=== PATIENT | male | born 1945 | race Caucasian/White ===

== ENCOUNTER 2017-07-03 07:38 | Day surgery (SDC) | payer OTHER, MEDICARE ==
[~2017-07-03] VITALS: Ht 185.4 cm; Wt 106.6 kg
[~2017-07-03 07:38] MED LIST: ALDACTONE100 MG PO; Aspirin E.C. PO; CARDIZEM120 MG PO; CATAPRES-TTS 31 EACH TD; CELEBREX200 MG PO; COLCHICINE0.6 M1 PO; Cardizem CD,Cartia X PO; Catapres PO; Catapres-TTS 3 TD; DuoNeb IH; Duragesic TD; FAMCICLOVIR500 MG PO; FENTANYL PATCH TD; FLUOCINOLON118.28 ML TP; FUROSEMIDE40 MG PO; Feosol PO; Habitrol,Nicoderm CQ TD; Hydrodiuril,Oretic,E PO; IRON325 MG PO; L-LYSINE500 M1 PO; LABETALOL HCL100 MG PO; LABETOLOL PO; LOVAZA1 GM PO; Lasix PO; Levaquin PO; Lovaza PO; Lovenox SC; Lysine,L-Lysine PO; MECLIZINE HCL12.5 M1 PO; MELATONIN10 M1 PO; MELATONIN10 M2 PO; MIRAPEX PO; MIRAPEX1 MG PO; MURO-128 5300 DROP/1 BOTH EYES; Melatonin PO; Milk Thistle PO; Mirapex PO; Muro-128 5% Ophth So BOTH EYES; NICOTINE PATCH1 EAC2 TD; NIFEDICAL XL60 MG PO; NIFEDIPINE ER30 MG PO; NORVASC10 MG PO; Normodyne,Trandate PO; Norvasc PO; OMEGA 3-6-9 11200 MG PO; OMEGA DHA92 MG PO; PAXIL20 MG PO; PAXIL30 MG PO; PRILOSEC20 MG PO; PROTONIX40 MG PO; Paxil PO; Protonix PO; RENVELA800 MG PO; SANTYL30 GM TP; SENOKOT,SENN1 TABLET PO; SODIUM BICARBO325 MG PO; SPIRONOLACTONE50 MG PO; SYNTHROID100 MCG PO; THERAGRAN1 TABLET PO; TIZANIDINE HCL4 M1 PO; TRAMADOL HCL50 MG PO; Theragran PO; ULORIC80 MG PO; ULTRAM50 MG PO; VIEKIRA PAK1 EACH PO; VITAMIN D31000 UNI2 PO; ZYLOPRIM100 MG PO; celeBREX PO; oxyCODONE PO
[2017-07-03] MEDS ORDERED: PRAMIPEXOLE D0.25 MG PO (07:57)
[2017-07-03] MEDS ORDERED: MIDODRINE HCL5 MG PO (07:58)
[2017-07-03] MEDS ORDERED: PANTOPRAZOLE SO40 MG PO (07:58)
[2017-07-03] MEDS ORDERED: RENVELA800 MG PO (07:59)
[2017-07-03] MEDS ORDERED: PAXIL20 MG PO (07:59)
[2017-07-03] MEDS ORDERED: FOLIC ACID1 MG PO (07:59)
[2017-07-03] MEDS ORDERED: TYLENOL EXTRA500 MG PO (08:01)
[2017-07-03] MEDS ORDERED: LATANOPROST2.5 ML BOTH EYES (08:01)
== END 2017-07-03 09:05 | disposition home or self-care (01) ==
LOC: CATH 07:38
DX: T82.590A Other mechanical complication of surgically created arteriovenous fistula, initial encounter (principal); N18.6 End stage renal disease; Z99.2 Dependence on renal dialysis; I83.90 Asymptomatic varicose veins of unspecified lower extremity; Z79.01 Long term (current) use of anticoagulants
CPT/HCPCS: 87641; C1769; C1894; J1644; J2250; J3010

== ENCOUNTER 2017-12-17 08:00 | Day surgery (SDC) | payer OTHER, MEDICARE ==
[~2017-12-17] VITALS: Ht 185.4 cm; Wt 111.2 kg
[~2017-12-17 08:00] MED LIST changes: +BREO ELLIPTA I1 EACH IH; +DUONEB 2.5-0.5 M3 ML AEROSOL; +FOLIC ACID1 MG PO; +FOSRENOL1000 MG PO; +LASIX40 MG PO; +LATANOPROST2.5 ML BOTH EYES; +MIDODRINE HCL5 MG PO; +PANTOPRAZOLE SO40 MG PO; +PRAMIPEXOLE D0.25 MG PO; +PULMICORT0.5 MG/21 IH; +SYNTHROID125 MCG PO; +TYLENOL EXTRA500 MG PO
[2017-12-17 08:47] VITALS: BP 181/80
[2017-12-17 08:47] LABS: HEMATOCRIT 36.6 % (38.0-50.0); HEMOGLOBIN 11.3 G/DL (12.5-16.6); MCH 33.2 PG (29.0-34.0); MCHC 30.9 G/DL (30.0-36.0); MCV 107.6 FL (86-99); PLATELET COUNT 132 K/uL (156-360); RBC DIS.WIDTH-CV 14.3 % (11.8-14.6); RBC DIS.WIDTH-SD 56.7 % (39-53); WHITE BLOOD COUNT 4.8 K/uL (4.1-10.2)
[2017-12-17 09:01] LABS: CHLORIDE 101 MEQ/L (99-109); GFR ESTIMATE (CALCULATED) 10 mL/min/ (58.99-99999); GLUCOSE 95 mg/dL (70-99); POTASSIUM 4.7 MEQ/L (3.7-5.4); SODIUM 141 MEQ/L (136-147); UREA NITROGEN (BUN) 60 mg/dL (9-23)
[2017-12-17 13:00] VITALS: BP 172/81
[2017-12-17 13:50] VITALS: BP 169/75
[2017-12-18] MEDS ORDERED: ISTALOL5 ML LEFT EYE (17:16)
[2017-12-18] MEDS ORDERED: CEPHALEXIN500 MG PO (17:16)
== END 2017-12-17 14:05 | disposition home or self-care (01) ==
LOC: SDC 08:00
PROVIDERS: Surgery
DX: T82.41XA Breakdown (mechanical) of vascular dialysis catheter, initial encounter (principal); Y83.2 Surgical operation with anastomosis, bypass or graft as the cause of abnormal reaction of the patient, or of later complication, without mention of misadventure at the time of the procedure; I12.0 Hypertensive chronic kidney disease with stage 5 chronic kidney disease or end stage renal disease; N18.6 End stage renal disease; Z99.2 Dependence on renal dialysis; Z87.891 Personal history of nicotine dependence; E03.9 Hypothyroidism, unspecified; I83.90 Asymptomatic varicose veins of unspecified lower extremity; Z86.12 Personal history of poliomyelitis
CPT/HCPCS: 80048; 85027; 87641; 93005; C1874; J0690; J1644; J2250; J2405; J2720; J3010

== ENCOUNTER 2017-12-18 13:56 | Inpatient (IN) | payer OTHER, MEDICARE ==
[~2017-12-18] VITALS: Ht 185.4 cm; Wt 123.9 kg
[2017-12-18 14:40] LABS: BASOPHIL (%) 0.8 % (0-1); BASOPHIL COUNT 0.1 K/uL (0-0.1); EOSINOPHIL COUNT 0.2 K/uL (0-0.3); HEMATOCRIT 34.4 % (38.0-50.0); HEMOGLOBIN 11.2 G/DL (12.5-16.6); IMMATURE GRANULOCYTE (%) 0.3 % (0.0-0.7); LYMPHOCYTE (%) 21.9 % (15-42); LYMPHOCYTE COUNT 1.3 K/uL (1.0-2.8); MCH 35.1 PG (29.0-34.0); MCHC 32.6 G/DL (30.0-36.0); MCV 107.8 FL (86-99); MONOCYTE COUNT 0.7 K/uL (0-0.8); NEUTROPHIL COUNT 3.8 K/uL (1.8-6.4); PLATELET COUNT 129 K/uL (156-360); RBC DIS.WIDTH-CV 14.4 % (11.8-14.6); RBC DIS.WIDTH-SD 57.1 % (39-53); RED BLOOD COUNT 3.19 M/uL (4.00-5.50); WHITE BLOOD COUNT 6.1 K/uL (4.1-10.2)
[2017-12-18 14:49] LABS: INTER. NORMALIZED RATIO 1.1
[2017-12-18 14:50] LABS: ALBUMIN 3.7 g/dL (3.2-4.8); CHLORIDE 103 mEq/L (99-109); SODIUM 141 mEq/L (136-147)
[2017-12-18 14:52] LABS: GLUCOSE 86 mg/dL (70-99); PTT 34.5 SEC (25-37); TOTAL PROTEIN 7.7 g/dL (6.4-8.3)
[2017-12-18 14:54] LABS: TOTAL BILIRUBIN 0.5 mg/dL (0.0-1.0)
[2017-12-18 14:56] LABS: ALKALINE PHOSPHATASE 78 IU/L (3-129)
[2017-12-18 14:57] LABS: UREA NITROGEN (BUN) 81 mg/dL (9-23)
[2017-12-18 14:58] LABS: AST (GOT) 28 IU/L (2-34)
[2017-12-18 14:59] LABS: ALT (GPT) 15 IU/L (3-49)
[2017-12-18 15:02] LABS: CREATININE 7.4 mg/dL (0.6-1.3); GFR ESTIMATE (CALCULATED) 8 mL/min/ (58.99-99999); POTASSIUM 5.7 mEq/L (3.7-5.4)
[2017-12-18 15:19] LABS: TROP-I INTERPRETATION NEGATIVE; TROPONIN-I 0.02 ng/mL (0.0-0.30)
[2017-12-18] MEDS ORDERED: ISTALOL5 ML LEFT EYE (17:16)
[2017-12-18] MEDS ORDERED: CEPHALEXIN500 MG PO (17:16)
[2017-12-18 17:52] LABS: CHLORIDE 104 mEq/L (99-109); POTASSIUM 5.6 mEq/L (3.7-5.4); SODIUM 143 mEq/L (136-147)
[2017-12-18 17:57] LABS: CREATININE 7.5 mg/dL (0.6-1.3); GFR ESTIMATE (CALCULATED) 8 mL/min/ (58.99-99999)
[2017-12-18 17:58] LABS: UREA NITROGEN (BUN) 83 mg/dL (9-23)
[2017-12-18 18:22] LABS: GLUCOSE 110 mg/dL (70-99)
[2017-12-18 21:11] VITALS: BP 153/72
[2017-12-19 04:34] VITALS: BP 144/70
[2017-12-19 06:15] LABS: CHLORIDE 101 MEQ/L (99-109); CREATININE 7.8 MG/DL (0.6-1.3); GFR ESTIMATE (CALCULATED) 7 mL/min/ (58.99-99999); GLUCOSE 88 mg/dL (70-99); POTASSIUM 5.7 MEQ/L (3.7-5.4); SODIUM 140 MEQ/L (136-147); UREA NITROGEN (BUN) 84 mg/dL (9-23)
[2017-12-19 07:23] VITALS: BP 131/61
[2017-12-19 12:17] LABS: BASOPHIL (%) 0.5 % (0-1); EOSINOPHIL (%) 2.2 % (0-5); EOSINOPHIL COUNT 0.1 K/uL (0-0.3); HEMATOCRIT 31.1 % (38.0-50.0); IMMATURE GRANULOCYTE (%) 0.5 % (0.0-0.7); LYMPHOCYTE (%) 18.9 % (15-42); LYMPHOCYTE COUNT 1.1 K/uL (1.0-2.8); MCH 34.8 PG (29.0-34.0); MCHC 32.2 G/DL (30.0-36.0); MCV 108.4 FL (86-99); MONOCYTE (%) 10.7 % (3-12); MONOCYTE COUNT 0.6 K/uL (0-0.8); NEUTROPHIL (%) 67.2 % (45-76); PLATELET COUNT 122 K/uL (156-360); RBC DIS.WIDTH-CV 14.4 % (11.8-14.6); RBC DIS.WIDTH-SD 57.9 % (39-53); RED BLOOD COUNT 2.87 M/uL (4.00-5.50)
[2017-12-19 19:00] VITALS: BP 143/65
[2017-12-20 00:41] VITALS: BP 153/70
[2017-12-20 03:35] VITALS: BP 132/63
[2017-12-20 06:11] LABS: HEMATOCRIT 31.9 % (38.0-50.0); HEMOGLOBIN 9.9 G/DL (12.5-16.6); MCH 33.3 PG (29.0-34.0); MCV 107.4 FL (86-99); PLATELET COUNT 114 K/uL (156-360); RBC DIS.WIDTH-SD 55.4 % (39-53); RED BLOOD COUNT 2.97 M/uL (4.00-5.50); WHITE BLOOD COUNT 5.2 K/uL (4.1-10.2)
[2017-12-20 06:33] LABS: CHLORIDE 97 MEQ/L (99-109); GLUCOSE 98 mg/dL (70-99); SODIUM 139 MEQ/L (136-147); UREA NITROGEN (BUN) 45 mg/dL (9-23)
[2017-12-20 06:38] LABS: CREATININE 5.5 MG/DL (0.6-1.3); GFR ESTIMATE (CALCULATED) 11 mL/min/ (58.99-99999); POTASSIUM 4.4 MEQ/L (3.7-5.4)
[2017-12-20 09:01] VITALS: BP 146/67
[2017-12-20 11:45] VITALS: BP 128/61
[2017-12-20 16:34] VITALS: BP 148/72
[2017-12-20 19:15] VITALS: BP 152/67
[2017-12-21 00:29] VITALS: BP 146/69
[2017-12-21 05:09] VITALS: BP 147/67
[2017-12-21 11:56] VITALS: BP 127/59
[2017-12-21 15:49] VITALS: BP 144/65
[2017-12-21 19:15] VITALS: BP 127/59
[2017-12-22 00:29] VITALS: BP 126/62
[2017-12-22 05:08] VITALS: BP 131/61
[2017-12-22 07:27] LABS: VANCOMYCIN, TROUGH 16.9 MCG/ML (10-20)
[2017-12-22 07:47] LABS: BASOPHIL (%) 0.7 % (0-1); EOSINOPHIL (%) 4.2 % (0-5); EOSINOPHIL COUNT 0.3 K/uL (0-0.3); HEMATOCRIT 32.1 % (38.0-50.0); HEMOGLOBIN 10.1 G/DL (12.5-16.6); IMMATURE GRANULOCYTE (%) 0.2 % (0.0-0.7); LYMPHOCYTE (%) 13.6 % (15-42); LYMPHOCYTE COUNT 0.8 K/uL (1.0-2.8); MCH 34.1 PG (29.0-34.0); MCHC 31.5 G/DL (30.0-36.0); MCV 108.4 FL (86-99); MONOCYTE (%) 12.2 % (3-12); MONOCYTE COUNT 0.7 K/uL (0-0.8); NEUTROPHIL (%) 69.1 % (45-76); NEUTROPHIL COUNT 4.1 K/uL (1.8-6.4); PLATELET COUNT 111 K/uL (156-360); RBC DIS.WIDTH-CV 13.8 % (11.8-14.6); RBC DIS.WIDTH-SD 55.1 % (39-53); RED BLOOD COUNT 2.96 M/uL (4.00-5.50); WHITE BLOOD COUNT 5.9 K/uL (4.1-10.2)
[2017-12-22 10:56] LABS: ALBUMIN 3.3 G/DL (3.2-4.8); CHLORIDE 98 MEQ/L (99-109); GFR ESTIMATE (CALCULATED) 7 mL/min/ (58.99-99999); GLUCOSE 126 mg/dL (70-99); PHOSPHORUS 7.7 mg/dL (2.5-4.9); POTASSIUM 4.7 MEQ/L (3.7-5.4); SODIUM 142 MEQ/L (136-147); UREA NITROGEN (BUN) 67 mg/dL (9-23)
[2017-12-22 10:58] LABS: CREATININE 7.8 MG/DL (0.6-1.3)
[2017-12-22] MEDS ORDERED: ZYVOX600 MG PO (14:31)
[2017-12-22 15:34] VITALS: BP 123/58
[2017-12-22 19:45] VITALS: BP 164/72
[2017-12-23] VITALS: BP 140/62
[2017-12-23 04:00] VITALS: BP 152/66
[2017-12-23 05:56] LABS: BASOPHIL (%) 0.7 % (0-1); EOSINOPHIL (%) 3.8 % (0-5); EOSINOPHIL COUNT 0.2 K/uL (0-0.3); HEMATOCRIT 32.3 % (38.0-50.0); HEMOGLOBIN 10.1 G/DL (12.5-16.6); IMMATURE GRANULOCYTE (%) 0.4 % (0.0-0.7); LYMPHOCYTE (%) 21.2 % (15-42); LYMPHOCYTE COUNT 1.2 K/uL (1.0-2.8); MCH 33.7 PG (29.0-34.0); MCHC 31.3 G/DL (30.0-36.0); MCV 107.7 FL (86-99); MONOCYTE (%) 13.6 % (3-12); MONOCYTE COUNT 0.7 K/uL (0-0.8); NEUTROPHIL (%) 60.3 % (45-76); NEUTROPHIL COUNT 3.3 K/uL (1.8-6.4); PLATELET COUNT 118 K/uL (156-360); RBC DIS.WIDTH-CV 13.4 % (11.8-14.6); RBC DIS.WIDTH-SD 53.6 % (39-53); WHITE BLOOD COUNT 5.5 K/uL (4.1-10.2)
[2017-12-23 06:22] LABS: CHLORIDE 95 MEQ/L (99-109); CREATININE 5.4 MG/DL (0.6-1.3); GFR ESTIMATE (CALCULATED) 11 mL/min/ (58.99-99999); GLUCOSE 92 mg/dL (70-99); POTASSIUM 4.1 MEQ/L (3.7-5.4); SODIUM 137 MEQ/L (136-147); UREA NITROGEN (BUN) 37 mg/dL (9-23)
[2017-12-23 07:00] VITALS: BP 152/69
== END 2017-12-23 15:25 | disposition home health service (06) | DRG 981 ==
LOC: EME 13:56 → EDOF 17:07 → 4SOUTH 17:07 → ENRESERV 17:55 → 4SOUTH 20:46 → ENPENDDIS 12-23 11:48 → 4SOUTH 12-23 15:25
PROVIDERS: Emergency Medicine; Internal Medicine; Internal Medicine Nephrology; Nurse Practitioner Adult Health
DX: M86.8X7 Other osteomyelitis, ankle and foot (principal); B95.62 Methicillin resistant Staphylococcus aureus infection as the cause of diseases classified elsewhere; N18.6 End stage renal disease; I12.0 Hypertensive chronic kidney disease with stage 5 chronic kidney disease or end stage renal disease; Z99.2 Dependence on renal dialysis; D63.1 Anemia in chronic kidney disease; E87.5 Hyperkalemia; E87.70 Fluid overload, unspecified; L03.115 Cellulitis of right lower limb; L03.116 Cellulitis of left lower limb; L97.529 Non-pressure chronic ulcer of other part of left foot with unspecified severity; J44.9 Chronic obstructive pulmonary disease, unspecified; E03.9 Hypothyroidism, unspecified; G14 Postpolio syndrome; Z66 Do not resuscitate; B18.2 Chronic viral hepatitis C; J98.11 Atelectasis; K21.9 Gastro-esophageal reflux disease without esophagitis; H40.9 Unspecified glaucoma; E66.9 Obesity, unspecified; Z68.36 Body mass index [BMI] 36.0-36.9, adult; F32.9 Major depressive disorder, single episode, unspecified; F10.10 Alcohol abuse, uncomplicated; Z87.891 Personal history of nicotine dependence; Z86.711 Personal history of pulmonary embolism; Z99.3 Dependence on wheelchair; Z95.828 Presence of other vascular implants and grafts
CPT/HCPCS: 71045; 71046; 73718; 80048; 80048 91; 80053; 80069; 80202; 82948; 83880; 84244 90; 84484; 85025; 85027; 85610; 85730; 87070; 87075; 87077; 87147; 87186; 87205; 87641; 93005; 94640; 94799; 99281; 99284; C1874; G0378; J0690; J0696; J1644; J2250; J2405; J2543; J2720; J3010; J3370; J7050